=== PATIENT | male | born 1935 | race Caucasian/White ===

== ENCOUNTER 2016-08-17 15:51 | Emergency (ER) | payer MEDICARE, OTHER ==
[2016-08-17 16:27] LABS: BASO % 0.2 % (0.2-1.2); EOS # 0.2 10_X3_uL (0.0-0.5); EOS % 3.3 % (0.8-7.0); GRAN # 3.6 10_X3_uL (1.8-5.4); GRAN % 58.2 % (34.0-67.9); HEMATOCRIT 37.8 % (40-51); HEMOGLOBIN 13.3 g/dL (13.7-17.5); LYMPH # 1.7 10_X3_uL (1.3-3.6); LYMPH % 28.1 % (21.8-53.1); MEAN CORPUSCULAR HEMOGLOBIN 32.3 pg (27.0-33.0); MEAN CORPUSCULAR HGB CONC 35.2 g/dL (32.0-36.0); MEAN CORPUSCULAR VOLUME 91.7 fL (79-92); MEAN PLATELET VOLUME 10.7 fl (7.5-11.5); MONO # 0.6 10_X3_uL (0.3-0.8); MONO % 10.2 % (5.3-12.2); PLATELET COUNT 158 x10_3/uL (163-337); RED BLOOD COUNT 4.12 x10_6/uL (4.6-6.1); RED CELL DISTRIBUTION WIDTH 12.2 % (11.6-14.4); WHITE BLOOD COUNT 6.2 x10_3/uL (4.2-9.1)
[2016-08-17 16:43] LABS: ALBUMIN 4.1 gm/dL (3.4-5.0); ALKALINE PHOSPHATASE 79 U/L (50-136); ALT/SGPT 13 U/L (7.53-40.17); AST/SGOT 22 U/L (6.66-35.34); BILIRUBIN,TOTAL 0.52 mg/dL (0.0-1.0); BLOOD UREA NITROGEN 20 mg/dL (7-18); CALCIUM 9.2 mg/dL (8.7-10.7); CARBON DIOXIDE 24 mmol/L (21-32); CREATININE 1.1 mg/dL (0.6-1.3); GLUCOSE,RANDOM 128 mg/dL (70-99); POTASSIUM 3.4 mmol/L (3.5-5.1); SODIUM 140 mmol/L (136-145); TOTAL PROTEIN 6.6 gm/dL (6.4-8.2)
== END 2016-08-17 19:00 | disposition home or self-care (01) ==
LOC: ER 15:51
PROVIDERS: General Practice
DX: R07.89 Other chest pain (principal); R10.9 Unspecified abdominal pain; M51.34 Other intervertebral disc degeneration, thoracic region; K57.30 Diverticulosis of large intestine without perforation or abscess without bleeding; K76.89 Other specified diseases of liver; N28.1 Cyst of kidney, acquired; R00.1 Bradycardia, unspecified; I44.0 Atrioventricular block, first degree; I10 Essential (primary) hypertension; Z79.899 Other long term (current) drug therapy; Z79.82 Long term (current) use of aspirin; Z85.46 Personal history of malignant neoplasm of prostate
CPT/HCPCS: 36415; 71260; 80053; 85025; 93005; 96360; 99070; 99284; 99284-25; J7040; Q9967